=== PATIENT | female | born 1995 | race Hispanic/Latino ===

== ENCOUNTER 2017-06-25 00:02 | Emergency (ER) | payer MEDICAID, OTHER ==
[2017-06-25] MEDS ORDERED: ACETAMINOPHEN-CODEINE 300/30MG TAB ONE (00:59)
== END 2017-06-25 01:09 | disposition home or self-care (01) ==
LOC: EDH 00:02 → EDSEX 00:02 → EDH 01:09
DX: S62.336A Displaced fracture of neck of fifth metacarpal bone, right hand, initial encounter for closed fracture (principal); W22.01XA Walked into wall, initial encounter; Y93.89 Activity, other specified; Y92.89 Other specified places as the place of occurrence of the external cause; Y99.8 Other external cause status
CPT/HCPCS: 29125; 73130

== ENCOUNTER 2018-10-31 20:37 | Emergency (ER) | payer OTHER ==
[2018-10-31] MEDS ORDERED: ACETAMINOPHEN EXTRA STRENGTH 500 MG TABLET ONE (20:56)
[2018-10-31] MEDS ORDERED: CLINDAMYCIN HCL 150 MG CAP ONE (20:56)
== END 2018-10-31 21:23 | disposition home or self-care (01) ==
LOC: EDH 20:37
DX: L03.115 Cellulitis of right lower limb (principal)

== ENCOUNTER 2018-11-02 21:13 | Emergency (ER) | payer OTHER | END 2018-11-02 22:11 | disposition home or self-care (01) | LOC: EDH 21:13 | DX: L03.115 Cellulitis of right lower limb (principal) ==